=== PATIENT | male | born 1965 ===

== ENCOUNTER 2016-09-07 07:32 | Emergency (ER) | payer OTHER, MEDICARE ==
[2016-09-07] MEDS ORDERED: FLUCONAZOLE 150 MG TABLET ONE (07:56)
== END 2016-09-07 08:45 | disposition home or self-care (01) ==
LOC: ED 07:32
DX: M79.3 Panniculitis, unspecified (principal); E66.9 Obesity, unspecified; F17.220 Nicotine dependence, chewing tobacco, uncomplicated
CPT/HCPCS: 87070; 99283 ×2; A9270

== ENCOUNTER 2016-09-15 23:16 | Emergency (ER) | payer OTHER, MEDICARE ==
[2016-09-16] MEDS ORDERED: ALBUTEROL/IPRATROPIUM 2.5/0.5 MG 3 ML/EACH DOSE ONE (00:40)
[2016-09-16] MEDS ORDERED: LORAZEPAM 1 MG TABLET ONE (00:54)
--- NOTE | 2016-09-16 08:04 | RAD ---
09/16/2016 7:59 AM CHEST - 2 VIEWS History: 4 days of cough Comparison: Plain films dating back to 06/29/2015 Findings: Two views of the chest are obtained. The lungs demonstrate fullness to the central, perihilar vasculature. Findings could relate to venous congestion. No evidence of interstitial or airspace edema is present. Lungs are otherwise clear. The cardiomediastinal silhouette is unremarkable.. The osseous structures demonstrate mild degenerative changes.. IMPRESSION: Fullness to the perihilar, central vasculature which could relate to venous congestion. No evidence of interstitial or airspace edema is present at this time. Follow-up as clinically warranted.
== END 2016-09-16 02:12 | disposition home or self-care (01) ==
LOC: ED 23:16
DX: J20.9 Acute bronchitis, unspecified (principal); I50.9 Heart failure, unspecified; I10 Essential (primary) hypertension
CPT/HCPCS: 71020; 87804; 94640; 94664; 99283 ×2; A9270

== ENCOUNTER 2016-10-10 17:28 | Emergency (ER) | payer OTHER, MEDICARE | END 2016-10-10 18:34 | disposition home or self-care (01) | LOC: ED 17:28 | DX: K08.89 Other specified disorders of teeth and supporting structures (principal) ==

== ENCOUNTER 2016-11-16 22:21 | Emergency (ER) | payer OTHER, MEDICARE ==
[2016-11-17 01:20] LABS: ABSOLUTE NEUTROPHIL COUNT 6.4 K/mm3 (1.8-7.7); BASO # 0.1 K/mm3 (0.0-0.2); BASO % 0.5 % (0.2-1.0); EOS # 0.2 (0.0-0.5); HEMATOCRIT 39.1 % (32.0-52.0); HEMOGLOBIN 12.4 gm/l (14.0-18.0); IMM NEUT% 0.4 % (0-1); LYMPH # 2.3 (1.0-4.8); LYMPH % 23.3 % (15-45); MEAN CELL VOLUME 85.6 fl (80.0-94.0); MEAN CORPUSCULAR HEMOGLOBIN 27.1 pg (27.0-31.0); MEAN CORPUSCULAR HGB CONC 31.7 g/dl (33.0-37.0); MONO # 0.8 (0.0-0.8); MONO % 8.2 % (4-12); NEUT % 65.6 % (43-75); RED CELL DISTRIBUTION WIDTH 13.6 % (11.5-14.5)
[2016-11-17 01:37] LABS: CALCIUM 9.6 mg/dL (8.6-10.3)
[2016-11-17 01:47] LABS: PLATELET ESTIMATE NORMAL (NORMAL)
[2016-11-17] MEDS ORDERED: ACETAMINOPHEN 500 MG TABLET ONE (02:37)
[2016-11-17] MEDS ORDERED: Potassium Chloride ORAL SOLN 20 MEQ/15 ML UDCUP ONE (02:37)
[2016-11-17] MEDS ORDERED: CEFTRIAXONE 1 GRAM DUPLEX 100 ML IV ONE (02:43)
--- NOTE | 2016-11-17 07:54 | US ---
VENOUS ULTRASOUND OF EXTREMITY Indications: Left ankle pain for one day. Comparison: None FINDINGS: Multiple grayscale, color-flow and duplex Doppler images during left lower extremity DVT ultrasound are obtained from the common femoral vein down through to the peroneal and posterior tibial veins. DEEP VENOUS THROMBOSIS: None. COMMON FEMORAL VEIN: Normal. PROXIMAL FEMORAL VEIN: Normal. MID TO DISTAL FEMORAL VEIN: Normal. POPLITEAL VEIN: Normal. PROXIMAL CALF VEINS: Normal. Evaluation is somewhat limited secondary to patient's body habitus. There is some soft tissue edema throughout the calf. IMPRESSION: No deep venous thrombosis of the left leg. Preliminary report was provided by [facility] at approximately 0228 hours on 11/17/2016.
== END 2016-11-17 03:21 | disposition home or self-care (01) ==
LOC: ED 22:21
DX: L03.116 Cellulitis of left lower limb (principal); I11.0 Hypertensive heart disease with heart failure; I50.9 Heart failure, unspecified; F17.220 Nicotine dependence, chewing tobacco, uncomplicated
CPT/HCPCS: 85025; 80048; 99284 ×2; 96365; 93971; A9270 ×2; J0696

== ENCOUNTER 2016-11-18 14:57 | Inpatient (IN) | payer OTHER, MEDICARE ==
[2016-11-18] MEDS ORDERED: VANCOMYCIN HCL 2.5 G in SODIUM CHLORIDE 0.9% 500 ML IV ONE (16:15)
[2016-11-18 16:21] LABS: ABSOLUTE NEUTROPHIL COUNT 7.6 K/mm3 (1.8-7.7); BASO % 0.3 % (0.2-1.0); EOS # 0.2 (0.0-0.5); EOS % 1.4 % (0.9-2.9); HEMATOCRIT 38.8 % (32.0-52.0); HEMOGLOBIN 12.5 gm/l (14.0-18.0); IMM NEUT # 0.1 K/mm3 (0-0.2); IMM NEUT% 0.5 % (0-1); LYMPH # 2.1 (1.0-4.8); LYMPH % 19.6 % (15-45); MEAN CELL VOLUME 85.1 fl (80.0-94.0); MEAN CORPUSCULAR HEMOGLOBIN 27.4 pg (27.0-31.0); MEAN CORPUSCULAR HGB CONC 32.2 g/dl (33.0-37.0); MEAN PLATELET VOLUME 9.2 fl (7.4-10.4); MONO # 0.7 (0.0-0.8); MONO % 6.5 % (4-12); NEUT % 71.7 % (43-75); PH,URINE 6.5 (5.0-8.0); PLATELET COUNT 271 K/mm3 (130-400); RED CELL DISTRIBUTION WIDTH 13.5 % (11.5-14.5); SPECIFIC GRAVITY 1.015 (1.001-1.030); URINE BILIRUBIN NEGATIVE (NEGATIVE); URINE BLOOD NEGATIVE (NEGATIVE); URINE GLUCOSE (UA) NEGATIVE (NEGATIVE); URINE LEUKOCYTE ESTERASE NEGATIVE (NEGATIVE); URINE NITRITE NEGATIVE (NEGATIVE); URINE PROTEIN NEGATIVE (NEGATIVE); URINE UROBILINOGEN NORMAL (0-1 mg/dl)
[2016-11-18 16:23] LABS: URINE APPEARANCE CLEAR; URINE COLOR LIGHT YELLOW
[2016-11-18 16:34] LABS: ALB/GLOB RATIO 1.1 (>1.0); ALBUMIN 4.3 gm/dL (3.5-5.7); CALCIUM 9.3 mg/dL (8.6-10.3)
[2016-11-18] MEDS ORDERED: SODIUM CHLORIDE 0.9% 1,000 ML ONE (17:04)
[2016-11-18] MEDS ORDERED: SODIUM CHLORIDE 0.9% 100 ML IV PRN (18:55)
[2016-11-18] MEDS ORDERED: MENTHOL/CETYLPYRD 1 EACH LOZENGE PO PRN (18:55)
[2016-11-18] MEDS ORDERED: BLISTEX LIPSTICK 1 EACH TP PRN (18:55)
[2016-11-18] MEDS ORDERED: ONDANSETRON 4 MG/2ML 2 ML VIAL IV PRN (18:56)
[2016-11-18] MEDS ORDERED: LORAZEPAM 2 MG/ML 1ML SDV IV PRN (19:06)
[2016-11-18] MEDS ORDERED: LIDOCAINE 1% (PRES FREE) 5 ML VIAL PF PRN (19:06)
[2016-11-18] MEDS ORDERED: POTASSIUM CHLORIDE 40 MEQ in SODIUM CHLORIDE 0.9% 500 ML IV ONE (19:30)
[2016-11-18] MEDS ORDERED: PUMP TUBING ONE (19:59)
[2016-11-18] MEDS ORDERED: METHADONE 10 MG TABLET PO SCH (20:00)
[2016-11-18] MEDS: CLONAZEPAM 0.5 MG TABLET PO SCH (20:07)
[2016-11-18 20:45] VITALS: BMI 56.7
[2016-11-18] MEDS ORDERED: SODIUM CHLORIDE 500 IRRIG BOT 500 ML IR ONE (21:37)
[2016-11-18] MEDS: ENOXAPARIN SODIUM 40 MG/0.4 ML SYRINGE SUB-Q SCH (22:19)
[2016-11-18] MEDS: ACETAMINOPHEN 325 MG TABLET PO PRN (22:23)
[2016-11-18] MEDS: IBUPROFEN 800 MG TABLET PO PRN (22:23)
[2016-11-19] MEDS: METHADONE 10 MG TABLET PO SCH ×2 (04:59→14:56)
[2016-11-19] MEDS: ACETAMINOPHEN 325 MG TABLET PO PRN (05:02)
[2016-11-19] MEDS ORDERED: VANCOMYCIN HCL 2.25 G in SODIUM CHLORIDE 0.9% 500 ML IV SCH (06:00)
[2016-11-19] MEDS: IBUPROFEN 800 MG TABLET PO PRN ×2 (06:06→23:31)
[2016-11-19 06:11] LABS: ABSOLUTE NEUTROPHIL COUNT 4.8 K/mm3 (1.8-7.7); BASO # 0.1 K/mm3 (0.0-0.2); BASO % 0.6 % (0.2-1.0); EOS # 0.3 (0.0-0.5); EOS % 3.1 % (0.9-2.9); HEMATOCRIT 37.9 % (32.0-52.0); HEMOGLOBIN 12.1 gm/l (14.0-18.0); IMM NEUT% 0.5 % (0-1); LYMPH # 2.5 (1.0-4.8); LYMPH % 30.3 % (15-45); MEAN CELL VOLUME 85.9 fl (80.0-94.0); MEAN CORPUSCULAR HEMOGLOBIN 27.4 pg (27.0-31.0); MEAN CORPUSCULAR HGB CONC 31.9 g/dl (33.0-37.0); MEAN PLATELET VOLUME 9.3 fl (7.4-10.4); MONO # 0.7 (0.0-0.8); MONO % 8.7 % (4-12); NEUT % 56.8 % (43-75); PLATELET COUNT 239 K/mm3 (130-400); RED CELL DISTRIBUTION WIDTH 13.8 % (11.5-14.5)
[2016-11-19 06:33] LABS: CALCIUM 9.2 mg/dL (8.6-10.3)
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
[2016-11-19] MEDS: CLONAZEPAM 0.5 MG TABLET PO SCH ×3 (08:09→20:44)
[2016-11-19] MEDS: FUROSEMIDE 20 MG TABLET PO SCH (08:09)
[2016-11-19] MEDS ORDERED: METHADONE 10 MG TABLET PO SCH (09:00)
[2016-11-19] MEDS ORDERED: DAPTOMYCIN 720 MG in SODIUM CHLORIDE 0.9% 100 ML IV SCH (09:00)
[2016-11-19] MEDS ORDERED: POTASSIUM CHLORIDE 10 MEQ TAB.SR PO SCH (09:00)
[2016-11-19] MEDS ORDERED: POTASSIUM CHLORIDE 20 MEQ TAB.PRT.SR PO SCH (13:51)
--- NOTE | 2016-11-19 13:57 | PDOC43 ---
- Subjective Chief Complaint: worsening left leg cellulitis Subjective: Reports Other (requests medication for breakthrough pain and anxiety ), Denies Fever - Objective Vital Signs Temperature 97.8 F 11/19/16 07:54 Pulse Rate 83 11/19/16 09:07 Respiratory Rate 16 11/19/16 07:54 Blood Pressure 88/56 11/19/16 09:07 O2 Saturation by Pulse Oximetry 99 11/19/16 09:07 Oxygen Delivery Method Nasal Cannula Oxygen Flow Rate 1 Intake and Output 11/18/16 11/19/16 11/20/16 06:59 06:59 06:59 Intake Total 2200 1420 Output Total 525 475 Balance 1675 945 General: Alert, Oriented x3, Cooperative Lungs: Clear to Auscultation Bilaterally Cardiovascular: Regular Rate and Rhythm Abdomen: Soft, Normal Bowel Sounds, Non-Distended, No Tenderness Extremities: Edema (unchanged) Skin: Erythema (progressed slightly proximally toward inguinal area) Wound: Dressing Clean/Dry/Intact (on right lower ext) Psych/Mental Status: Anxious Laboratory 11/19/16 05:30 11/19/16 05:30 11/19/16 05:30 RBC 4.41 L MCHC 31.9 L Creatine Kinase 310 H Current Medications: Current meds reviewed in EMR. - Problems: Assessment/Plan (1) Cellulitis Qualifiers: Site of cellulitis: extremity Site of cellulitis of extremity: lower extremity Laterality: right Qualifier Code: (L03.115) Cellulitis of right lower limb Status: AcuteAssessment/Plan: leukocytosis improving with daptomycin, Linezolid is not covered by insurance, PICC ordered - anticipate outpatient therapy for 10-14 days (2) Hypokalemia Status: AcuteAssessment/Plan: likely caused by lasix - improved with replacement (3) Venous stasis Status: ChronicAssessment/Plan: with stasis ulcer on right leg followed by STEPS (4) Anxiety Status: ChronicAssessment/Plan: on clonazepam (5) Methadone maintenance therapy patient Status: ChronicAssessment/Plan: on methadone maintenance (6) Morbid obesity with BMI of 50.0-59.9, adult Status: ChronicAssessment/Plan: complicates care (7) Lactic acidosis Status: AcuteAssessment/Plan: unclear cause but do not feel that patient is septic based on clinical assessment - repeat in am VTE Prophylaxis: Lovenox Disposition: Home in am with outpatient parenteral antibiotics
[2016-11-19] MEDS: HYDROCODONE/ACETAMINOPHEN 5/325MG TABLET PO PRN ×2 (18:23→23:31)
[2016-11-19] MEDS: ENOXAPARIN SODIUM 40 MG/0.4 ML SYRINGE SUB-Q SCH (19:25)
[2016-11-20] MEDS: METHADONE 10 MG TABLET PO SCH ×2 (04:57→14:39)
[2016-11-20] MEDS: HYDROCODONE/ACETAMINOPHEN 5/325MG TABLET PO PRN (04:59)
[2016-11-20] MEDS: CLONAZEPAM 0.5 MG TABLET PO SCH ×2 (08:31→14:39)
[2016-11-20] MEDS: FUROSEMIDE 20 MG TABLET PO SCH (08:31)
[2016-11-20] MEDS ORDERED: LINEZOLID 600 MG TABLET PO SCH (09:00)
--- NOTE | 2016-11-20 11:02 | PDOC43 ---
- Subjective Chief Complaint: left leg cellulitis Patient reports feeling ok. Appetite better. Leg erythema improved, but hasn't regressed much. - Objective Vital Signs Temperature 97.7 F 11/20/16 08:00 Pulse Rate 67 11/20/16 08:00 Respiratory Rate 18 11/20/16 08:00 Blood Pressure 124/74 11/20/16 08:00 O2 Saturation by Pulse Oximetry 95 11/20/16 08:00 Oxygen Delivery Method Room Air Oxygen Flow Rate 0 Vital Signs Last 12 Hours Temp Pulse Resp BP Pulse Ox 11/20/16 08:00 97.7 F 67 18 124/74 95 11/20/16 02:50 98.4 F 86 18 105/61 99 11/20/16 01:50 81 102/63 11/20/16 01:26 98.0 F 70 20 130/61 96 11/20/16 01:21 18 11/20/16 00:50 97 107/67 11/19/16 23:50 98.5 F 81 18 107/65 99 Intake and Output 11/18/16 11/19/16 11/20/16 23:59 23:59 23:59 Intake Total 4070 400 Output Total 225 1400 Balance -225 2670 400 General: Alert, Cooperative, No Acute Distress HEENT: Atraumatic Lungs: Clear to Auscultation Bilaterally, Normal Air Movement Cardiovascular: Regular Rate and Rhythm Abdomen: Soft, Normal Bowel Sounds, Non-Distended, No Tenderness Extremities: Edema (chronic edema noted.), Other (Redness fading on leg, very mild now. some spread up to medial inner thigh.) Skin: Other (venous stasis, ongoing at ankles bilat.) Neurological: Normal Speech Psych/Mental Status: Normal Affect, Normal Mood Laboratory 11/19/16 05:30 11/19/16 05:30 Current Medications: Current meds reviewed in EMR. Active Medications Cardiovascular Furosemide (Lasix) 60 mg PO QAM [facility] Last Admin: 11/20/16 08:31 Dose: 60 mg FEN Potassium Chloride (K-Dur) 20 meq PO DAILY [facility] Last Admin: 11/20/16 08:30 Dose: 20 meq ID Daptomycin 720 mg/ Sodium (Chloride) 114.4 mls @ 200 mls/hr IV Q24H [facility] Last Admin: 11/19/16 09:37 Dose: 200 mls/hr Linezolid (Zyvox 600 Mg Tablet) 600 mg PO BID [facility] Last Admin: 11/20/16 09:47 Dose: 600 mg Neuro/Psych Methadone HCl (Methadone) 125 mg PO QAM@0530 [facility] Last Admin: 11/20/16 04:57 Dose: 125 mg Methadone HCl (Methadone) 65 mg PO DAILY@1500 [facility] Last Admin: 11/19/16 14:56 Dose: 65 mg Clonazepam (Klonopin) 0.25 mg PO TID [facility] Last Admin: 11/20/16 08:31 Dose: 0.25 mg PRN Ibuprofen (Motrin) 800 mg PO TID PRN PRN Reason: Pain Last Admin: 11/19/16 23:31 Dose: 800 mg Ondansetron HCl (Zofran) 4 mg IV Q3H PRN PRN Reason: Nausea/Vomiting Petrolatum/Paraffin/Mineral Oil (Blistex) 1 each TP PRN PRN PRN Reason: Dry and/or chapped lips Acetaminophen (Tylenol) 650 mg PO Q6H PRN PRN Reason: Pain or Temperature > 100.5 F Last Admin: 11/19/16 05:02 Dose: 650 mg Acetaminophen/Hydrocodone Bitart (Marston 5/325) 1 - 2 tab PO Q4H PRN PRN Reason: Pain Last Admin: 11/20/16 04:59 Dose: 2 tab Benzocaine/Menthol (Cepacol) 1 each PO PRN PRN PRN Reason: Sore Throat VTE Enoxaparin Sodium (Lovenox) 40 mg SUB-Q Q24H [facility] Last Admin: 11/19/16 19:25 Dose: 40 mg - Problems: Assessment/Plan (1) Cellulitis Qualifiers: Site of cellulitis: extremity Site of cellulitis of extremity: lower extremity Laterality: right Qualifier Code: (L03.115) Cellulitis of right lower limb Status: AcuteAssessment/Plan: leukocytosis improving with daptomycin, but Linezolid now IS covered by insurance, anticipate outpatient therapy for 14 days (already called to pharmacy ). Canceled PICC, anticipate DC with PO. (2) Venous stasis Status: ChronicAssessment/Plan: with stasis ulcer on right leg followed by [facility] (3) Anxiety Status: ChronicAssessment/Plan: on clonazepam (4) Methadone maintenance therapy patient Status: ChronicAssessment/Plan: on methadone maintenance (5) Morbid obesity with BMI of 50.0-59.9, adult Status: ChronicAssessment/Plan: complicates care, particularly with venous stasis VTE Prophylaxis: Lovenox Disposition: Home with PO antibiotics anticipated today.
[2016-11-20 14:44] VITALS: BP 150/70
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
== END 2016-11-20 14:50 | disposition home or self-care (01) | DRG 603 ==
LOC: ED 14:57 → MS 17:02
PROVIDERS: ADMIT Family Medicine; ATTEND Family Medicine
DX: L03.116 Cellulitis of left lower limb (principal); Z68.43 Body mass index [BMI] 50.0-59.9, adult; I87.8 Other specified disorders of veins; E66.01 Morbid (severe) obesity due to excess calories; E87.6 Hypokalemia; R03.1 Nonspecific low blood-pressure reading; F41.9 Anxiety disorder, unspecified; G89.29 Other chronic pain; Z79.891 Long term (current) use of opiate analgesic; F10.21 Alcohol dependence, in remission; F19.21 Other psychoactive substance dependence, in remission; F17.220 Nicotine dependence, chewing tobacco, uncomplicated